=== PATIENT | male | born 1960 | race Caucasian/White ===

== ENCOUNTER 2020-05-08 16:06 | Observation (INO) | payer BC, SELFPAY ==
--- NOTE | 2020-05-08 | XR_ITS ---
EXAMINATION: XR CHEST CLINICAL INFORMATION: Dizziness COMPARISON: None TECHNIQUE: Frontal view of the chest was obtained. FINDINGS: The cardiac and mediastinal contours are normal. The lungs are clear. There is no pleural effusion or pneumothorax. There are surgical anchors in the right humeral head and degenerative changes. There are degenerative changes of the spine. IMPRESSION: No evidence for acute disease in the chest.
--- NOTE | 2020-05-08 | ECG_ITS ---
Test Reason : DIZZINESS Blood Pressure : / mmHG Vent. Rate : 111 BPM Atrial Rate : 133 BPM P-R Int : 000 ms QRS Dur : 090 ms QT Int : 306 ms P-R-T Axes : 000 021 060 degrees QTc Int : 416 ms Atrial fibrillation with rapid ventricular response with premature ventricular or aberrantly conducted complexes Abnormal ECG No previous ECGs available Referred By: Yousif Castano Electronically Signed By:CELI DEVINE
--- NOTE | 2020-05-08 | CT_ITS ---
EXAMINATION: CT ANGIOGRAM OF THE CHEST WITH AND WITHOUT CONTRAST (CT PULMONARY ANGIOGRAM FOR PE) CLINICAL INFORMATION: Reason for Exam dizziness, tachy, elevated ddimer COMPARISON: None TECHNIQUE: Prior to contrast administration, noncontrast localization images were obtained. Subsequently, multidetector volumetric imaging was performed from the thoracic inlet to below the diaphragms following the administration of 71 mL Omnipaque 350 intravenous contrast. No contrast reaction reported Sagittal, coronal, and MIP oblique sagittal reformatted images were obtained on the CT workstation, uploaded to PACS, and reviewed. This CT examination was performed using dose optimization techniques as appropriate, variously including the following: *Automated exposure control *Adjustment of mA and/or kV according to patient size (this includes techniques or standardized protocols for targeted exams where dose is matched to indication/reason for exam; i.e. extremities or head) *Use of iterative reconstruction technique Total exam dose-length product 380 mGy-cm FINDINGS: QUALITY OF STUDY/CONTRAST BOLUS: Satisfactory. PULMONARY ARTERIES: No central or segmental pulmonary emboli. THORACIC AORTA: No aneurysm or dissection. LUNG: No focal consolidation, nodules or masses. PLEURA: No pleural effusion or pneumothorax. MEDIASTINUM: Normal heart size. No pericardial effusion. No hilar or mediastinal lymphadenopathy. No evidence of septal bowing or right heart strain. CHEST WALL/AXILLA: No axillary or internal mammary lymphadenopathy. OSSEOUS STRUCTURES: No acute or suspicious osseous abnormality. UPPER ABDOMEN: Unremarkable. No reflux of contrast into the hepatic veins to suggest elevated right heart pressures. IMPRESSION: No evidence of pulmonary emboli VTE: negative
--- NOTE | 2020-05-08 | CT_ITS ---
EXAMINATION: CT HEAD WITHOUT CONTRAST CLINICAL INFORMATION: Dizziness. COMPARISON: CT head from 10/24/2012. TECHNIQUE: Contiguous axial imaging was performed from the skull base to vertex without intravenous administration of contrast. DLP: 874 mGy-cm This CT examination was performed using dose optimization techniques as appropriate, variously including the following: *Automated exposure control. *Adjustment of mA and/or kV according to patient size (this includes techniques or standardized protocols for targeted exams where dose is matched to indication/reason for exam; i.e. extremities or head). *Use of iterative reconstruction technique. FINDINGS: Changes of stent assisted coil embolization in the region of the distal right ICA. There is no evidence of acute intracranial hemorrhage or edematous territorial infarction. A few foci of hypoattenuation in the periventricular and deep white matter are consistent with mild microangiopathy. Chronic lacunar infarct of the right caudate head. No new loss of bell-white matter differentiation. The ventricles are normal in size and configuration. No evidence for obstructive hydrocephalus. No abnormal mass effect or midline shift. No extra-axial fluid collections. No acute soft tissue or osseous abnormalities. Mild mucosal thickening of the paranasal sinuses. The mastoid air cells and middle ear cavities remain clear. IMPRESSION: 1. No evidence of acute intracranial hemorrhage or edematous territorial infarction. 2. Changes of stent assisted coil embolization in the region of the distal right ICA. 3. Chronic lacunar infarct of the right caudate head. Mild underlying microangiopathy.
[2020-05-08 16:31] VITALS: BP 135/78; BP 147/86; PULSE 117; RESP 20; TEMP 36.8; O2SAT 97; BMI 33.9
[2020-05-08] MEDS: 0.9 % Sodium Chloride 1,000 ML 999 ML IVCONT (17:07)
[2020-05-08 17:10] VITALS: BP 124/74; PULSE 125
[2020-05-08] MEDS: Metoprolol Tartrate 5 MG/5 ML VIAL 2.5 MG IVPUSH (17:10)
--- NOTE | 2020-05-08 17:18 | ED.DIZZY ---
HPI - Dizziness General Chief Complaint: Dizziness Stated Complaint: syncopee Time Seen by Provider: 05/08/20 16:34 Source: patient Mode of arrival: EMS History of Present Illness HPI Narrative: 59-year-old male stating that earlier today he was at home sitting down and started to feel his heart race. At that point he started get diaphoretic and felt like he passed out. However his did witness same he did not fully pass out. Patient states his heart was pounding out of his chest lasted several minutes. Upon arrival to the EMS they noted tachycardia however no medications were given patient was in a fib patient has not been sick recently however did state that he had a cardiac catheterization about 2 months ago at [facility] that was normal. No recent illness no nausea no vomiting MD elicited complaint: dizziness and lightheadedness Related Data Home Medications Medication Instructions Recorded Confirmed alprazolam 1 tab PO TID PRN 05/08/20 05/08/20 atorvastatin 1 tab PO DAILY 05/08/20 05/08/20 dofetilide [Tikosyn] 500 mcg PO Q12H 05/08/20 05/08/20 doxycycline hyclate 1 cap PO BID 05/08/20 05/08/20 lidocaine TOPICAL TID 05/08/20 oxycodone-acetaminophen 1 tab PO Q6H 05/08/20 05/08/20 terazosin 1 cap PO BEDTIME 05/08/20 05/08/20 Allergies Allergy/AdvReac Type Severity Reaction Status Date / Time No Known Allergies Allergy Verified 05/08/20 16:43 Review of Systems Review of Systems: Yes all other systems are reviewed and are negative Constitutional: Comments: Constitutional : No Weight loss, No Fever, No Chills, No Night Sweats, No Fatigue, No Malaise ENT/Mouth : No Hearing loss, No Ear Pain, No Nasal Congestion, No Sinus Pain, No Hoarseness, No sore throat, No Rhinorrhea, No Swallowing Difficulty Eyes: No Eye Pain, No Swelling, No Redness, No Foreign Body, No Discharge, No Vision Changes Cardiovascular : positive Chest Pain, No SOB, No Dyspnea on Exertion, No Orthopnea, No Edema, No Palpitations Respiratory : No Cough, No Sputum, No Wheezing, No Smoke Exposure, No Dyspnea Gastrointestinal : No Nausea, No Vomiting, No Diarrhea, No Constipation, No abdominal Pain, No Hematochezia, No Melena Genitourinary : no irregular bleeding, No Dysuria, No Urinary Frequency, No Hematuria, No Urinary Incontinence, No Urgency, No Flank Pain, No Urinary Flow Changes, No Hesitancy Musculoskeletal : No joint pain, No Myalgias, No Joint Swelling Skin : No Skin Lesions, No rash Neuro : No Weakness, No Numbness, No Paresthesias, No Loss of Consciousness, No Dizziness, No Headache Psych : No Anxiety/Panic, No Depression, No SI/HI/AH/VH, No Social Issues, Heme/Lymph: No Bruising, No Bleeding,No Lymphadenopathy Endocrine : No Polyuria, No Polydipsia, No Temperature Intolerance [facility] Past Medical History Attestation statement: The following information was validated with the patient. Medical History A-fib Brain aneurysm Prostate CA Surgical History Hx of cardiac cath S/P ablation of atrial flutter Social History Social History Alcohol intake: former Smoking Status: Light tobacco smoker Tobacco Type: Cigarette Smoked in Last 30 Days: Yes Patient Interested in Nicotine Replacement: No Patient Given Instructions on How to Stop Smoking: No Second Hand Smoke Exposure: No Use of substances other than those prescribed or required for medical reasons: No Advance Directives: No Advance Directives Information Provided: No Advance Directives on File: No Physical Exam Vital Signs and I&O and Narrative: Vital Signs and I&O: Vital Signs Temp 96.7 F L 05/09/20 00:00 Pulse 64 05/09/20 00:00 Resp 18 05/09/20 00:00 BP 144/87 H 05/09/20 00:00 Pulse Ox 97 05/09/20 00:00 Intake & Output 05/08/20 05/08/20 05/09/20 06:59 18:59 06:59 Intake Total 1000 / 1000 Balance 1000 / 1000 Weight 113.398 kg Intake: Intake, IV Amoun t 1000 / 1000 0.9 % Sodium C hloride 1,000 ml 1000 / 1000 @ 999 mls/hr I VCONT .Q1H1M ALISHA Rx#:[id number] Body Mass Index 33.9 vital signs reviewed 97% pulse ox room air and interpreted by me Const: Other: Appearance: Alert. Oriented X3. No acute distress. Eyes: Pupils equal, round and reactive to light. ENT: Pharynx normal. Neck: Normal inspection. Neck supple. CVS: abnormal rhythm. Positive S1-S2 Pulses normal. Respiratory: No respiratory distress. Breath sounds normal. Abdomen: Soft and nontender. Skin: Skin warm and dry. Normal skin color. Normal skin turgor. Extremities: No lower extremity edema. No lower extremity edema. Neuro: Oriented X 3. No motor deficit. No sensory deficit. General: cooperative Course Course Course Narrative: differential diagnosis includes pulmonary embolism secondary to history of prostate cancer. History of a brain aneurysm will get a CT scan of the brain secondary to rule out bleed. Patient slightly tachycardic in 120s however is on a beta-lazaro will give a small dose of IV Lopressor re-examined and now 21:30. Patient has a negative CTA for PE. Normal labs. Slight tachycardiac at AFib of 110 on the monitor. Patient did have an episode of syncope today with palpitations. Patient does have a strong history of ablation and on some anti arrhythmic. Patient will need to be admitted for continuous monitoring patient aware at 22:00 I spoke to hospitalist Dr. Tor baer regarding admission laboratory and radiology results reviewed by me MDM - Dizziness Differential Diagnosis Differential diagnosis: Likely benign paroxysmal positional vertigo and orthostatic hypotension Medical Records Attestation: I reviewed the patient's medical records. Lab Data Result diagrams: 05/08/20 17:32 05/08/20 17:32 Labs: Lab Results 05/08/20 05/08/20 05/08/20 Range/Units 17:32 17:32 17:32 WBC 7.5 (4.8-10.8) X10*3/uL RBC 4.84 (4.60-5.80) X10*6/uL Hgb 15.6 (14.0-18.0) g/dl Hct 46.2 (42-52) % MCV 95.5 (80-98) fL MCH 32.2 (27.0-33.0) pg MCHC 33.8 (31.0-36.0) g/dl RDW 13.1 (11.0-16.0) % Plt Count 162 (160-400) X10*3/uL MPV 9.4 (9.4-12.4) fL Immature Gran % (Auto) 0.3 (0.0-0.4) % Neut % (Auto) 64.8 (45-73) % Lymph % (Auto) 23.8 (20-40) % Jackson % (Auto) 8.7 (2-11) % Eos % (Auto) 2.1 (0-4) % Baso % (Auto) 0.3 (0-2) % Neut # (Auto) 4.9 (2.0-8.3) X10*3/uL Lymph # (Auto) 1.8 (1.2-4.9) X10*3/uL Jackson # (Auto) 0.7 (0.1-1.2) X10*3/uL Eos # (Auto) 0.2 (0.0-0.4) X10*3/uL Baso # (Auto) 0.0 (0.0-0.2) X10*3/uL Abs Immat Gran (auto) 0.02 (0.00-0.03) X10*3/uL Absolute Nucleated RBC 0.000 (0.0-0.012) X10*3/uL Nucleated RBC % (auto) 0.0 (0.0-0.2) /100WBC PT 13.3 H (10.8-13.0) SEC INR 1.1 (0.9-1.1) APTT 36.2 (24.1-38.0) SEC D-Dimer NG/ML Sodium 142 (135-145) mmol/L Potassium 4.7 (3.3-5.1) mmol/l Chloride 108 (96-108) mmol/L Carbon Dioxide 26 (22-29) mmol/L Anion Gap 13 (12-20) BUN 23 H (9-16) mg/dL Creatinine 0.82 (0.5-1.4) mg/dL Estim Creat Clear Calc 122.9 Estimated GFR > 60 Random Glucose 98 (60-115) mg/dL Calcium 8.6 (8.4-10.2) mg/dL Troponin I High Sens (<3.5-35.0) ng/L 05/08/20 05/08/20 Range/Units 17:32 17:32 WBC (4.8-10.8) X10*3/uL RBC (4.60-5.80) X10*6/uL Hgb (14.0-18.0) g/dl Hct (42-52) % MCV (80-98) fL MCH (27.0-33.0) pg MCHC (31.0-36.0) g/dl RDW (11.0-16.0) % Plt Count (160-400) X10*3/uL MPV (9.4-12.4) fL Immature Gran % (Auto) (0.0-0.4) % Neut % (Auto) (45-73) % Lymph % (Auto) (20-40) % Jackson % (Auto) (2-11) % Eos % (Auto) (0-4) % Baso % (Auto) (0-2) % Neut # (Auto) (2.0-8.3) X10*3/uL Lymph # (Auto) (1.2-4.9) X10*3/uL Jackson # (Auto) (0.1-1.2) X10*3/uL Eos # (Auto) (0.0-0.4) X10*3/uL Baso # (Auto) (0.0-0.2) X10*3/uL Abs Immat Gran (auto) (0.00-0.03) X10*3/uL Absolute Nucleated RBC (0.0-0.012) X10*3/uL Nucleated RBC % (auto) (0.0-0.2) /100WBC PT (10.8-13.0) SEC INR (0.9-1.1) APTT (24.1-38.0) SEC D-Dimer 266 NG/ML Sodium (135-145) mmol/L Potassium (3.3-5.1) mmol/l Chloride (96-108) mmol/L Carbon Dioxide (22-29) mmol/L Anion Gap (12-20) BUN (9-16) mg/dL Creatinine (0.5-1.4) mg/dL Estim Creat Clear Calc Estimated GFR Random Glucose (60-115) mg/dL Calcium (8.4-10.2) mg/dL Troponin I High Sens 14.7 (<3.5-35.0) ng/L ECG Data Attestation: I personally reviewed and interpreted this ECG as follows: Interpretation: atrial fib at rate of 111. Normal axis. Occasional PVC. Normal ST segments Discharge Plan Discharge Clinical Impression: Syncope, Heart palpitations, Atrial fibrillation Patient Disposition: Admitted As Inpatient Interventions: Admission Worksheet (ED) Last Done: 05/09/20 00:28 Discharge Date/Time: 05/09/20 00:30
[2020-05-08 17:54] LABS: MANUAL DIFF FLAG NO
[2020-05-08 17:56] LABS: Basophils Percent Auto 0.3 % (0-2); Eosinophils Absolute Auto 0.2 X10*3/uL (0.0-0.4); Eosinophils Percent Auto 2.1 % (0-4); Hematocrit 46.2 % (42-52); Hemoglobin 15.6 g/dl (14.0-18.0); Imm Gran Abs Auto 0.02 X10*3/uL (0.00-0.03); Imm Gran Pct Auto 0.3 % (0.0-0.4); Lymphocytes Absolute Auto 1.8 X10*3/uL (1.2-4.9); Lymphocytes Percent Auto 23.8 % (20-40); Mean Corpuscular HGB Conc 33.8 g/dl (31.0-36.0); Mean Corpuscular Hemoglobin 32.2 pg (27.0-33.0); Mean Corpuscular Volume 95.5 fL (80-98); Mean Platelet Volume 9.4 fL (9.4-12.4); Monocytes Absolute Auto 0.7 X10*3/uL (0.1-1.2); Monocytes Percent Auto 8.7 % (2-11); Neutrophils Absolute Auto 4.9 X10*3/uL (2.0-8.3); Neutrophils Percent Auto 64.8 % (45-73); Platelet Count 162 X10*3/uL (160-400); Red Blood Count 4.84 X10*6/uL (4.60-5.80); Red Cell Distribution Width 13.1 % (11.0-16.0); White Blood Count 7.5 X10*3/uL (4.8-10.8)
[2020-05-08 18:05] LABS: INTERNATIONAL NORM RATIO 1.1 (0.9-1.1); Prothrombin Time 13.3 SEC (10.8-13.0)
[2020-05-08 18:08] LABS: D Dimer 266 NG/ML; Partial Thromboplastin Time 36.2 SEC (24.1-38.0)
[2020-05-08 18:20] VITALS: BP 124/88; PULSE 108; PULSE 120; RESP 18; O2SAT 97
[2020-05-08 18:21] LABS: Anion Gap 13 (12-20); Blood Urea Nitrogen 23 mg/dL (9-16); Calcium 8.6 mg/dL (8.4-10.2); Carbon Dioxide 26 mmol/L (22-29); Chloride 108 mmol/L (96-108); Creatinine Clr Calc Pharmacy 122.9; Estimated Glomerular Filt Rate > 60; Glucose Random 98 mg/dL (60-115); Potassium 4.7 mmol/l (3.3-5.1); Sodium 142 mmol/L (135-145)
[2020-05-08 18:28] LABS: Troponin-I High Sensitivity 14.7 ng/L (<3.5-35.0)
[2020-05-08 19:01] VITALS: BP 121/71; PULSE 99; RESP 16; O2SAT 97
--- NOTE | 2020-05-08 19:02 | PC.NURSE ---
Report taken from tata Benitez RN resuming care. Pt found resting in bed, denies dizziness/pain/discomfort at this time. Pt concerned for PM Doxycycline dose for UTI/prostate infection. Pt trying to contact for dose. VSS. Continue to monitor.
--- NOTE | 2020-05-08 19:32 | PC.NURSE ---
Pharm called for pending medications. Awaiting pharm to bring medications to ED.
--- NOTE | 2020-05-08 19:48 | PC.NURSE ---
Pt medicated per EMAR. Awaiting CT.
[2020-05-08] MEDS: iohexoL 350 MG/ML 100 ML INFUS..BTL IV (20:38)
--- NOTE | 2020-05-08 20:39 | PC.NURSE ---
Returns from CT on hospital bed without incident.
--- NOTE | 2020-05-08 22:49 | PC.NURSE ---
Hospitalist at bedside.
--- NOTE | 2020-05-08 22:49 | PM.IMHP ---
History of Present Illness Date of Service: 05/08/20 Chief Complaint: syncope 59 y/o male with a significant cardiac hx of afib s/p ablation in the past and PCI 1 month ago who presented from home due to an episode of loss of conciusness . Per history provided by the patient, today while walking with the son, felt his heart was racing and then suddenly felt malaise and loss conciusness for a few minutes. Patient recovered conciusness right after without any sequelae or neurologic deficit. Patient on presentation to the ED was noted to be on afib with RVR (HR of 120's). Was given metoprolol and tikosyn per ED attending. Now HR is under controlled <110's. Patient reports feeling well, denies any chest pain, SOB, nausea or vomiting at present. Reported that 1 month ago had a cardiac cath as was having SOB on ambulation for quite some time but no coronary artery disease was found during the procedure. Medicine was called for admission. Patient was seen and evaluated in the ED, laying down in bed in no acute distress. ROS as above otherwise negative. Physical exam unremarkable. PMHX: Afib on rate control med but no anticoagulation, Anxiety, Urinary retention, HLP PSx: S/p PCI one month ago, S/p ablation Toxic habits: No hx of alcohol abuse, smoking or IVDA Review of Systems Constitutional: Constitutional: Reports malaise Cardiovascular: Cardiovascular: Reports syncope Neurologic: Reports syncope ON LICENSE OF [facility] Medical History A-fib Brain aneurysm Prostate CA Functional capacity: independent ambulation Family history: reviewed and not pertinent Surgical History Hx of cardiac cath S/P ablation of atrial flutter Social History Alcohol intake: former Smoking Status: Light tobacco smoker Smoked in Last 30 Days: Yes Use of substances other than those prescribed or required for medical reasons: No Advance Directives: No Advance Directives Information Provided: No Meds Allergies Allergy/AdvReac Type Severity Reaction Status Date / Time No Known Allergies Allergy Verified 05/08/20 16:43 Home Medications Medication Instructions Recorded Confirmed Type alprazolam 1 tab PO TID PRN 05/08/20 05/08/20 History atorvastatin 1 tab PO DAILY 05/08/20 05/08/20 History dofetilide [Tikosyn] 500 mcg PO Q12H 05/08/20 05/08/20 History doxycycline hyclate 1 cap PO BID 05/08/20 05/08/20 History lidocaine TOPICAL TID 05/08/20 History oxycodone-acetaminophen 1 tab PO Q6H 05/08/20 05/08/20 History terazosin 1 cap PO BEDTIME 05/08/20 05/08/20 History Physical Exam Vital Signs and Narrative: Vital Signs: Last Vital Signs Temp 98.2 F 05/08/20 16:31 Pulse 99 05/08/20 19:01 Resp 16 05/08/20 19:01 BP 121/71 05/08/20 19:01 Pulse Ox 97 05/08/20 19:01 Body Mass Index 33.9 Const: General: cooperative, healthy appearing, comfortable and no acute distress Orientation/consciousness: patient oriented x3 HENMT: Head: Yes normal to inspection Eyes: General: appearance normal, both eyes and all related structures Neck: Yes normal visual inspection and Yes no lymphadenopathy Chest: Chest palpation & inspection: normal inspection of the chest Resp: Effort & Inspection: normal respiratory effort Cardio: Jugular venous distension: no JVD Heart sounds: S1 normal heart sound present and S2 normal heart sound present GI: Inspection: Yes normal to inspection Skin: General skin exam: no rashes or lesions noted Neuro: General: patient oriented x3 Extrem: General: Yes normal to inspection Psych: Appearance: grossly normal Results Labs Labs: Laboratory Tests 05/08/20 05/08/20 05/08/20 17:32 17:32 17:32 WBC 7.5 RBC 4.84 Hgb 15.6 Hct 46.2 MCV 95.5 MCH 32.2 MCHC 33.8 RDW 13.1 Plt Count 162 MPV 9.4 Immature Gran % (Auto) 0.3 Neut % (Auto) 64.8 Lymph % (Auto) 23.8 Hartley % (Auto) 8.7 Eos % (Auto) 2.1 Baso % (Auto) 0.3 Neut # (Auto) 4.9 Lymph # (Auto) 1.8 Hartley # (Auto) 0.7 Eos # (Auto) 0.2 Baso # (Auto) 0.0 Abs Immat Gran (auto) 0.02 Absolute Nucleated RBC 0.000 Nucleated RBC % (auto) 0.0 PT 13.3 H INR 1.1 APTT 36.2 D-Dimer Sodium 142 Potassium 4.7 Chloride 108 Carbon Dioxide 26 Anion Gap 13 BUN 23 H Creatinine 0.82 Estim Creat Clear Calc 122.9 Estimated GFR > 60 Random Glucose 98 Calcium 8.6 Troponin I High Sens 05/08/20 05/08/20 17:32 17:32 WBC RBC Hgb Hct MCV MCH MCHC RDW Plt Count MPV Immature Gran % (Auto) Neut % (Auto) Lymph % (Auto) Hartley % (Auto) Eos % (Auto) Baso % (Auto) Neut # (Auto) Lymph # (Auto) Hartley # (Auto) Eos # (Auto) Baso # (Auto) Abs Immat Gran (auto) Absolute Nucleated RBC Nucleated RBC % (auto) PT INR APTT D-Dimer 266 Sodium Potassium Chloride Carbon Dioxide Anion Gap BUN Creatinine Estim Creat Clear Calc Estimated GFR Random Glucose Calcium Troponin I High Sens 14.7 Assessment and Plan (1) Atrial fibrillation with RVR: Status: Acute Hemodynamically stable at present. HR controlled now No neurologic deficits on exam monitor and storage bin tender for 24-48 hrs Continue with rate control med as ordered Follow up 2D Echo in the am Cardiology consult for evaluation in the morning Observation as of now (2) Syncope: Status: Acute Likely due to cardiac etiology Observation monitor and storage bin tender in C Rest of the plan as above (3) Anxiety: Status: Acute continue with alprazolam home dose (4) Hyperlipidemia: Status: Acute continue with statin home dose (5) Urinary retention: Status: Acute continue with terazosin home dose
[2020-05-08 22:51] VITALS: BP 138/72; PULSE 73; RESP 16; TEMP 36.7; O2SAT 97
--- NOTE | 2020-05-08 23:07 | PC.NURSE ---
Med Rec completed at bedside with pt. Pt aware of plan to admit, requesting food/drink.
--- NOTE | 2020-05-08 23:37 | PC.NURSE ---
Pt given a sandwich and a glass of water per request. Pt sitting upright in bed, watching TV, awaiting admission. Continue to monitor.
--- NOTE | 2020-05-08 23:42 | PC.NURSE ---
This RN calling IMC, IMC to call back when ready to take report.
--- NOTE | 2020-05-08 23:43 | PC.NURSE ---
Report given to C RN. Pt awaiting transfer to floor.
[2020-05-09] VITALS (8 sets, daily range): BP systolic 100–147; BP diastolic 58–87; PULSE 56–71; RESP 18; TEMP 35.9–36.9; O2SAT 96–99; BMI 33.8
--- NOTE | 2020-05-09 | ECG_ITS ---
Test Reason : CHECK QTC Blood Pressure : / mmHG Vent. Rate : 075 BPM Atrial Rate : 075 BPM P-R Int : 208 ms QRS Dur : 092 ms QT Int : 416 ms P-R-T Axes : 062 021 041 degrees QTc Int : 464 ms Sinus rhythm with frequent Premature ventricular complexes Otherwise normal ECG When compared with ECG of 08-MAY-2020 16:33, Sinus rhythm has replaced Atrial fibrillation Referred By: Yousif Castano Electronically Signed By:CELI DEVINE
[2020-05-09] MEDS: Enoxaparin Sodium 40 MG/0.4 ML SYRINGE SUBCUT ×2 (00:44→21:09)
[2020-05-09] MEDS: 0.9 % Sodium Chloride 1,000 ML 100 ML IVCONT ×3 (00:45→19:07)
[2020-05-09] MEDS: Ibuprofen 600 MG TABLET PO (01:21)
[2020-05-09 06:34] LABS: MANUAL DIFF FLAG NO
--- NOTE | 2020-05-09 06:44 | PC.NURSE ---
PATIENT HAD A RUN OF 5 BEAT VTACH. PATIENT ASSESSED AND HAS NO COMPLAINTS AT THIS TIME. PROVIDER MADE AWARE. WILL CONTINUE TO MONITOR.
[2020-05-09 06:54] LABS: Basophils Percent Auto 0.4 % (0-2); Eosinophils Absolute Auto 0.2 X10*3/uL (0.0-0.4); Eosinophils Percent Auto 2.7 % (0-4); Hematocrit 45.4 % (42-52); Hemoglobin 15.3 g/dl (14.0-18.0); Imm Gran Abs Auto 0.01 X10*3/uL (0.00-0.03); Imm Gran Pct Auto 0.1 % (0.0-0.4); Lymphocytes Percent Auto 28.3 % (20-40); Mean Corpuscular HGB Conc 33.7 g/dl (31.0-36.0); Mean Corpuscular Hemoglobin 32.2 pg (27.0-33.0); Mean Corpuscular Volume 95.6 fL (80-98); Mean Platelet Volume 9.8 fL (9.4-12.4); Monocytes Absolute Auto 0.6 X10*3/uL (0.1-1.2); Neutrophils Absolute Auto 4.2 X10*3/uL (2.0-8.3); Neutrophils Percent Auto 60.5 % (45-73); Platelet Count 171 X10*3/uL (160-400); Red Blood Count 4.75 X10*6/uL (4.60-5.80); Red Cell Distribution Width 13.2 % (11.0-16.0)
[2020-05-09 08:18] LABS: Anion Gap 12 (12-20); Blood Urea Nitrogen 19 mg/dL (9-16); Calcium 8.2 mg/dL (8.4-10.2); Carbon Dioxide 24 mmol/L (22-29); Chloride 109 mmol/L (96-108); Creatinine Clr Calc Pharmacy 136.1; Estimated Glomerular Filt Rate > 60; Glucose Random 105 mg/dL (60-115); Potassium 4.4 mmol/l (3.3-5.1); Sodium 141 mmol/L (135-145)
--- NOTE | 2020-05-09 10:28 | PM.CNCAR ---
History of Present Illness History of Present Illness Date of Consult: May 09, 2020 Requesting physician: Turner Baer Consult reason: atrial fibrillation Chief complaint: syncope Narrative: This is a cardiology consultation for syncopal episode. Patient states that he was standing near his son when all of a sudden he just did not feel good. He suddenly felt as though he was going to pass out. It appears that that may have been a transient loss of consciousness although he did not fall down. When he presented to the ER, he was noted to be in atrial fibrillation rapid rate in the 120s. He was given some metoprolol and Tikosyn per ER physician. Patient has actually been on Tikosyn for many years. He has a history of long-standing atrial fibrillation. It appears that he is mostly in sinus rhythm. He also has a history of atrial flutter and underwent ablation for the same many years ago. About 2 weeks ago, he was started on terazosin for prostate issues. Since that time, he has not been feeling good. Otherwise, it seems that he also underwent cardiac catheterization few weeks ago at [facility]. He was told that he did not have any major problems although we do not have the actual report. Review of Systems Review of Systems: Yes all other systems are reviewed and are negative Cardiovascular: Cardiovascular: Reports syncope Neurologic: Reports syncope PMFSH Past Medical History Medical History A-fib Brain aneurysm Prostate CA Functional capacity: independent ambulation Family History Family History (Updated 05/09/20 @ 10:35 by Parmjit Cha MD) Other No significant family history Family history: reviewed and not pertinent Surgical History Surgical History Hx of cardiac cath S/P ablation of atrial flutter Social History Social History Alcohol intake: former Smoking Status: Light tobacco smoker Tobacco Type: Cigarette Smoked in Last 30 Days: Yes Patient Interested in Nicotine Replacement: No Patient Given Instructions on How to Stop Smoking: No Second Hand Smoke Exposure: No Use of substances other than those prescribed or required for medical reasons: No Advance Directives: No Advance Directives Information Provided: No Advance Directives on File: No Meds Allergies Allergy/AdvReac Type Severity Reaction Status Date / Time No Known Allergies Allergy Verified 05/08/20 16:43 Home Medications Medication Instructions Recorded Confirmed Type alprazolam 1 tab PO TID PRN 05/08/20 05/08/20 History atorvastatin 1 tab PO DAILY 05/08/20 05/08/20 History dofetilide [Tikosyn] 500 mcg PO Q12H 05/08/20 05/08/20 History doxycycline hyclate 1 cap PO BID 05/08/20 05/08/20 History lidocaine TOPICAL TID 05/08/20 History oxycodone-acetaminophen 1 tab PO Q6H 05/08/20 05/08/20 History terazosin 1 cap PO BEDTIME 05/08/20 05/08/20 History aspirin 81 mg PO DAILY 05/09/20 05/09/20 History metoprolol succinate 25 mg PO DAILY 05/09/20 05/09/20 History Physical Exam Vital Signs and I&O and Narrative: Vital Signs and I&O: Vital Signs Temp 97.3 F 05/09/20 08:00 Pulse 71 05/09/20 08:00 Resp 18 05/09/20 08:00 BP 115/58 L 05/09/20 08:00 Pulse Ox 98 05/09/20 08:00 Intake & Output 05/08/20 05/09/20 05/09/20 18:59 06:59 18:59 Intake Total 1000 / 1240 240 / 1240 930 / 930 Output Total 0 / 0 Balance 1000 / 1240 240 / 1240 930 / 930 Urine Output (Aver age ml/kg/hr) 0.00 0.00 Weight 250 lb 249 lb 8.307 oz Intake: Intake, Oral Clear unt 240 / 240 Intake, IV Amoun t 1000 / 1000 930 / 930 0.9 % Sodium C hloride 1,000 ml 1000 / 1000 930 / 930 @ 100 mls/hr I VCONT .Q10H [facility] Rx#:[id number] Output: Output, Urine Am ount 0 / 0 Other: Meal Refused No Breakfast % Eate n 100% Body Mass Index 33.8 Const: General: cooperative, comfortable and no acute distress Orientation/consciousness: patient oriented x3 HENMT: Other: Unremarkable Neck: Neck: Yes normal visual inspection Chest: Chest palpation & inspection: normal inspection of the chest Resp: Auscultation: clear to auscultation bilaterally, no crackles and no wheezes Cardio: Jugular venous distension: no JVD Palpation: normal PMI Heart sounds: S1 normal heart sound present, S2 normal heart sound present, no gallops, Murmur heart sound present (2/6 RAMANDEEP aortic area) and no rubs GI: Palpation (GI): Soft to palpation Back/Spine/Pelvis: Other: unremarkable Skin: General skin exam: no rashes or lesions noted Neuro: General: patient oriented x3 Extrem: General: Yes no clubbing, cyanosis or edema Psych: Mental Status: mental status grossly normal Results Labs and Meds Result diagrams: 05/09/20 05:43 05/09/20 05:43 Lab results: Laboratory Results - last 24 hr 05/08/20 05/08/20 05/08/20 17:32 17:32 17:32 WBC 7.5 RBC 4.84 Hgb 15.6 Hct 46.2 MCV 95.5 MCH 32.2 MCHC 33.8 RDW 13.1 Plt Count 162 MPV 9.4 Immature Gran % (Auto) 0.3 Neut % (Auto) 64.8 Lymph % (Auto) 23.8 Falls % (Auto) 8.7 Eos % (Auto) 2.1 Baso % (Auto) 0.3 Neut # (Auto) 4.9 Lymph # (Auto) 1.8 Falls # (Auto) 0.7 Eos # (Auto) 0.2 Baso # (Auto) 0.0 Abs Immat Gran (auto) 0.02 Absolute Nucleated RBC 0.000 Nucleated RBC % (auto) 0.0 PT 13.3 H INR 1.1 APTT 36.2 D-Dimer Sodium 142 Potassium 4.7 Chloride 108 Carbon Dioxide 26 Anion Gap 13 BUN 23 H Creatinine 0.82 Estim Creat Clear Calc 122.9 Estimated GFR > 60 Random Glucose 98 Calcium 8.6 Troponin I High Sens 05/08/20 05/08/20 05/09/20 17:32 17:32 05:43 WBC 7.0 RBC 4.75 Hgb 15.3 Hct 45.4 MCV 95.6 MCH 32.2 MCHC 33.7 RDW 13.2 Plt Count 171 MPV 9.8 Immature Gran % (Auto) 0.1 Neut % (Auto) 60.5 Lymph % (Auto) 28.3 [place] % (Auto) 8.0 Eos % (Auto) 2.7 Baso % (Auto) 0.4 Neut # (Auto) 4.2 Lymph # (Auto) 2.0 Falls # (Auto) 0.6 Eos # (Auto) 0.2 Baso # (Auto) 0.0 Abs Immat Gran (auto) 0.01 Absolute Nucleated RBC 0.000 Nucleated RBC % (auto) 0.0 PT INR APTT D-Dimer 266 Sodium Potassium Chloride Carbon Dioxide Anion Gap BUN Creatinine Estim Creat Clear Calc Estimated GFR Random Glucose Calcium Troponin I High Sens 14.7 05/09/20 05:43 WBC RBC Hgb Hct MCV MCH MCHC RDW Plt Count MPV Immature Gran % (Auto) Neut % (Auto) Lymph % (Auto) [place] % (Auto) Eos % (Auto) Baso % (Auto) Neut # (Auto) Lymph # (Auto) [place] # (Auto) Eos # (Auto) Baso # (Auto) Abs Immat Gran (auto) Absolute Nucleated RBC Nucleated RBC % (auto) PT INR APTT D-Dimer Sodium 141 Potassium 4.4 Chloride 109 H Carbon Dioxide 24 Anion Gap 12 BUN 19 H Creatinine 0.74 Estim Creat Clear Calc 136.1 Estimated GFR > 60 Random Glucose 105 Calcium 8.2 L Troponin I High Sens EKG Interpretation Telemetry: PVC's EKG Comments: admission EKG reviewed. Atrial fibrillation with rapid response at 01:11/Min. PVCs versus aberrant conduction noted. Telemetry with PVCs and a 5 beat run of NSVT. Assessment and Plan (1) Atrial fibrillation with RVR: Status: Acute (2) Syncope: Status: Acute (3) PVC (premature ventricular contraction): Status: Acute Not entirely clear if the syncopal episode is due to the terazosin that he started 2 weeks ago as he has not been feeling well ever since. Atrial fibrillation is also possible but less likely. At this time he can continue the beta-blockers and Tikosyn that he has been taking for many years. Will try to reach out to his printmaker from [facility]. With regard to the murmur in the aortic area, there is a mention of calcification of aortic leaflets from [facility] echocardiogram from 2019 but there was no stenosis at that time.
[2020-05-09] MEDS: HYDROcodone Bit/Acetam 5/325 TABLET 1 TAB PO ×2 (11:10→18:18)
[2020-05-09] MEDS: Metoprolol Succinate ER 25 MG TAB.ER.24H PO (11:11)
[2020-05-09] MEDS: Aspirin Enteric Coated 81 MG TABLET.DR PO (11:12)
--- NOTE | 2020-05-09 12:31 | MHC.CM.PN ---
CM met with patient at the bedside who reports he is independent and lives with his . States his is HCP, requested copy. Discussed discharge plan, home no services. will provide transportation. CM will continue to monitor foe discharge needs.
[2020-05-09] MEDS: ALPRAZolam 0.5 MG TABLET PO (17:25)
--- NOTE | 2020-05-09 18:01 | PM.IMPN ---
Subjective Subjective Date of Service: 05/09/20 Interval History: seen and examined this am was anxious related to his cardiac meds -- reassured he would get the appropriate meds no further cardiac / neuro complaints otherwirse Review of Systems General - no fevers or chills Cardiovascular - no chest pain Respiratory - no shortness of breath or cough Abdominal- no abdominal pain, nausea, vomiting, diarrhea Physical Exam Vital Signs and I&O and Narrative: Vital Signs and I&O: Vital Signs Temp 98.4 F 05/09/20 15:26 Pulse 62 05/09/20 15:26 Resp 18 05/09/20 15:26 BP 147/84 H 05/09/20 15:26 Pulse Ox 98 05/09/20 15:26 Intake & Output 05/08/20 05/09/20 05/09/20 18:59 06:59 18:59 Intake Total 1000 / 1240 240 / 1240 1150 / 1150 Output Total 0 / 0 600 / 600 Balance 1000 / 1240 240 / 1240 550 / 550 Urine Output (Aver age ml/kg/hr) 0.00 0.44 Weight 113.398 kg 113.18 kg Intake: Intake, Oral [place] unt 240 / 240 220 / 220 Intake, IV Amoun t 1000 / 1000 930 / 930 0.9 % Sodium C hloride 1,000 ml 1000 / 1000 930 / 930 @ 100 mls/hr I VCONT .Q10H [facility] Rx#:[id number] Output: Output, Urine Am ount 0 / 0 600 / 600 Other: Meal Refused No Breakfast % Eate n 100% Lunch % Eaten 100% Body Mass Index 33.8 General - no acute distress, appears comfortable Cardiovascular - regular rate and rhythm, S1-S2 Lungs - normal respiratory effort, clear to auscultation bilaterally, no wheezing Abdomen - soft, nontender, no rebound regarding Extremities - no edema bilaterally Neuro - awake and alert, no focal deficits Objective Data Current Medications Generic Name Dose Route Start Last Admin Trade Name Freq PRN Reason Stop Dose Admin Hydrocodone Bitart/Acetaminophen 1 tab 05/09/20 10:30 05/09/20 11:10 Hydrocodone Bit/Acetam 5/325 Tablet PO 1 tab Q6H PRN Administration Pain, Severe (Pain Scale 7-10) Alprazolam 0.5 mg 05/08/20 23:38 05/09/20 17:25 Alprazolam 0.5 Mg Tablet PO 0.5 mg TID PRN Administration anxiety Aspirin 81 mg 05/09/20 10:38 05/09/20 11:12 Aspirin Enteric Coated 81 Mg Tablet.Dr PO 81 mg DAILY ALISHA Administration Atorvastatin Calcium 40 mg 05/09/20 21:00 Atorvastatin Calcium 40 Mg Tablet PO BEDTIME ALISHA Doxazosin Mesylate 1 mg 05/09/20 21:00 Doxazosin Mesylate 1 Mg Tablet PO BEDTIME ALISHA Doxycycline Hyclate 100 mg 05/09/20 19:00 Doxycycline Hyclate 100 Mg Tablet PO Q12H ALISHA Enoxaparin Sodium 40 mg 05/08/20 22:52 05/09/20 00:44 Enoxaparin Sodium 40 Mg/0.4 Ml Syringe SUBCUT 40 mg Q24H ALISHA Administration Sodium Chloride 1,000 mls @ 100 mls/hr 05/08/20 22:52 05/09/20 10:03 Ns IVCONT 100 mls/hr .Q10H ALISHA Administration Metoprolol Succinate 25 mg 05/09/20 10:30 05/09/20 11:11 Metoprolol Succinate Er 25 Mg Tab.Er.24h PO 25 mg DAILY ALISHA Administration Protocol Sodium Chloride 2 ml 05/09/20 00:00 05/09/20 10:03 0.9 % Sodium Chloride Flush 3 Ml Syringe IVFLUSH Not Given QSHIFT [facility] Labs CBC & Chem 7: 05/09/20 05:43 05/09/20 05:43 Labs: Laboratory Results - last 24 hr 05/08/20 05/08/20 05/08/20 17:32 17:32 17:32 MCV MCH MCHC RDW Plt Count MPV Immature Gran % (Auto) Neut % (Auto) Lymph % (Auto) [place] % (Auto) Eos % (Auto) Baso % (Auto) Neut # (Auto) Lymph # (Auto) [place] # (Auto) Eos # (Auto) Baso # (Auto) Abs Immat Gran (auto) Absolute Nucleated RBC Nucleated RBC % (auto) PT 13.3 H INR 1.1 APTT 36.2 D-Dimer Anion Gap 13 Estim Creat Clear Calc 122.9 Estimated GFR > 60 Random Glucose 98 Calcium 8.6 Troponin I High Sens 14.7 05/08/20 05/09/20 05/09/20 17:32 05:43 05:43 MCV 95.6 MCH 32.2 MCHC 33.7 RDW 13.2 Plt Count 171 MPV 9.8 Immature Gran % (Auto) 0.1 Neut % (Auto) 60.5 Lymph % (Auto) 28.3 [place] % (Auto) 8.0 Eos % (Auto) 2.7 Baso % (Auto) 0.4 Neut # (Auto) 4.2 Lymph # (Auto) 2.0 [place] # (Auto) 0.6 Eos # (Auto) 0.2 Baso # (Auto) 0.0 Abs Immat Gran (auto) 0.01 Absolute Nucleated RBC 0.000 Nucleated RBC % (auto) 0.0 PT INR APTT D-Dimer 266 Anion Gap 12 Estim Creat Clear Calc 136.1 Estimated GFR > 60 Random Glucose 105 Calcium 8.2 L Troponin I High Sens Progress Note: A&P (1) Syncope: Status: Acute Assessment and Plan: 59 yo M admitted after syncopal episode 1. Syncope / a. fib rvr (now in sinus) cardiology on board -- tikosyn has been disctontinued continue metoprolol monitor on tele 2. HLD statin 3. Anxiety xanax 4. Prostatitis continue his doxy dvt pptx, lovenox full code
[2020-05-09] MEDS: Atorvastatin Calcium 40 MG TABLET PO (21:09)
[2020-05-10] VITALS (9 sets, daily range): BP systolic 126–160; BP diastolic 78–98; PULSE 62–82; RESP 18–20; TEMP 36.3–36.5; O2SAT 95–98
[2020-05-10] MEDS: 0.9 % Sodium Chloride Flush 3 ML SYRINGE 2 ML IVFLUSH ×2 (00:04→09:26)
[2020-05-10] MEDS: 0.9 % Sodium Chloride 1,000 ML 100 ML IVCONT (05:03)
[2020-05-10] MEDS: HYDROcodone Bit/Acetam 5/325 TABLET 1 TAB PO (05:08)
[2020-05-10] MEDS: Metoprolol Succinate ER 25 MG TAB.ER.24H PO (09:26)
[2020-05-10] MEDS: Aspirin Enteric Coated 81 MG TABLET.DR PO (10:18)
--- NOTE | 2020-05-10 10:24 | PM.PNCARD ---
Subjective Subjective Interval history: He has not had any further syncopal episodes in the hospital. In the bathroom, he did feel dizzy when he went to urinate. Physical Exam Vital Signs and I&O: Vital Signs Temp 97.7 F 05/10/20 07:55 Pulse 76 05/10/20 09:26 Resp 20 05/10/20 07:55 BP 126/82 05/10/20 09:26 Pulse Ox 96 05/10/20 07:55 Const General: cooperative, comfortable and no acute distress Orientation/consciousness: patient oriented x3 HENMT Other: Unremarkable Neck Neck: Yes normal visual inspection Chest Chest palpation & inspection: normal inspection of the chest Resp Auscultation: clear to auscultation bilaterally, no crackles and no wheezes Cardio Jugular venous distension: no JVD Palpation: normal PMI Heart sounds: S1 normal heart sound present, S2 normal heart sound present, no gallops, Murmur heart sound present (2/6 RAMANDEEP aortic area) and no rubs GI Palpation (GI): Soft to palpation Back/Spine/Pelvis Other: unremarkable Skin General skin exam: no rashes or lesions noted Neuro General: patient oriented x3 Extrem General: Yes no clubbing, cyanosis or edema Psych Mental Status: mental status grossly normal Progress Note: A&P Assessment and plan (1) Atrial fibrillation with RVR: Status: Acute (2) Syncope: Status: Acute (3) PVC (premature ventricular contraction): Status: Acute Assessment and Plan: Not entirely clear if the syncopal episode is due to the terazosin that he started 2 weeks ago as he has not been feeling well ever since. Atrial fibrillation is also possible but less likely. At this time he can continue the beta-blockers. 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 I discussed this with the patient and he understands and agrees. He will call his laborer carpentry dock for appointments. With regard to the murmur in the aortic area, there is a mention of calcification of aortic leaflets from [facility] echocardiogram from 2019 but there was no stenosis at that time. Fall Risk Details Current Medications: Current Medications Generic Name Dose Route Start Last Admin Trade Name Freq PRN Reason Stop Dose Admin Hydrocodone Bitart/Acetaminophen 1 tab 05/09/20 10:30 05/10/20 05:08 Hydrocodone Bit/Acetam 5/325 Tablet PO 1 tab Q6H PRN Administration Pain, Severe (Pain Scale 7-10) Alprazolam 0.5 mg 05/08/20 23:38 05/09/20 17:25 Alprazolam 0.5 Mg Tablet PO 0.5 mg TID PRN Administration anxiety Aspirin 81 mg 05/09/20 10:38 05/10/20 10:18 Aspirin Enteric Coated 81 Mg Tablet.Dr PO 81 mg DAILY ALISHA Administration Atorvastatin Calcium 40 mg 05/09/20 21:00 05/09/20 21:09 Atorvastatin Calcium 40 Mg Tablet PO 40 mg BEDTIME ALISHA Administration Doxazosin Mesylate 1 mg 05/09/20 21:00 05/09/20 21:13 Doxazosin Mesylate 1 Mg Tablet PO Not Given BEDTIME ALISHA Doxycycline Hyclate 100 mg 05/09/20 19:00 05/10/20 06:30 Doxycycline Hyclate 100 Mg Tablet PO 100 mg Q12H ALISHA Administration Enoxaparin Sodium 40 mg 05/08/20 22:52 05/09/20 21:09 Enoxaparin Sodium 40 Mg/0.4 Ml Syringe SUBCUT 40 mg Q24H ALISHA Administration Sodium Chloride 1,000 mls @ 100 mls/hr 05/08/20 22:52 05/10/20 05:03 Ns IVCONT 100 mls/hr .Q10H ALISHA Administration Metoprolol Succinate 25 mg 05/09/20 10:30 05/10/20 09:26 Metoprolol Succinate Er 25 Mg Tab.Er.24h PO 25 mg DAILY ALISHA Administration Protocol Sodium Chloride 2 ml 05/09/20 00:00 05/10/20 09:26 0.9 % Sodium Chloride Flush 3 Ml Syringe IVFLUSH 2 ml QSHIFT ALISHA Administration Time Spent With Patient Time: Total time spent is greater than 50% in coordination of care (as documented) at patient's floor/unit and/or counseling patient: Time with patient: 15 - 24 minutes
--- NOTE | 2020-05-10 13:21 | P.DS_ITS ---
DS: Providers Provider Date of admission: 05/08/20 22:52 Primary care physician: Duong Wells MD Consults: 05/08/20 22:52 Consult to Physician Routine Consulting Provider: [facility] [place] Cardiovascular Services Reason for consultation: syncope, afib with RVR Has provider been notified: No DS: Diagnosis Discharge Diagnosis (1) Atrial fibrillation with RVR: Status: Acute (2) Syncope: Status: Acute (3) PVC (premature ventricular contraction): Status: Acute DS: Summary Hospital Course Hospital Course: HPI From the admission H&P: 59 y/o male with a significant cardiac hx of afib s/p ablation in the past and PCI 1 month ago who presented from home due to an episode of loss of conciusness . Per history provided by the patient, today while walking with the son, felt his heart was racing and then suddenly felt malaise and loss conciusness for a few minutes. Patient recovered conciusness right after without any sequelae or neurologic deficit. Patient on presentation to the ED was noted to be on afib with RVR (HR of 120's). Was given metoprolol and tikosyn per ED attending. Now HR is under controlled <110's. Patient reports feeling well, denies any chest pain, SOB, nausea or vomiting at present. Reported that 1 month ago had a cardiac cath as was having SOB on ambulation for quite some time but no coronary artery disease was found during the procedure. Medicine was called for admission. Patient was seen and evaluated in the ED, laying down in bed in no acute distress. ROS as above otherwise negative. Physical exam unremarkable. Hospital course no specific cause for the patient's syncopal episode was found. He was monitored on telemetry and did have some PVCs /and SVTs and his medications were discussed by the cardiology team with the patient's outpatient customer support technician at [facility] [place] and decision was made to discontinue his Tikosyn. patient had no further syncopal episodes in the hospital and had negative orthostatics. He was ambulated in the hallway greater than 500 ft with no issues and will be discharged home with close follow-up with his customer support technician. Time Spent with Patient Time attestation: Total time spent providing and/or coordinating discharge services: Physical Exam Vital Signs and I&O and Narrative: Vital Signs and I&O: Vital Signs Temp 97.7 F 10/07/20 07:55 Pulse 77 05/10/20 12:12 Resp 20 05/10/20 12:00 BP 160/98 H 05/10/20 12:12 Pulse Ox 97 05/10/20 12:00 Intake & Output 05/09/20 05/10/20 05/10/20 18:59 06:59 18:59 Intake Total 1360 / 3500.000 2140.000 / 3500.00 0 420 / 420 Output Total 600 / 600 Balance 760 / 2900.000 2140.000 / 2900.00 0 419 / 419 Urine Output (Aver age ml/kg/hr) 0.44 0.44 0.00 Intake: Intake, Oral [place] unt 430 / 670 240 / 670 420 / 420 Intake, IV Amoun t 930 / 2830.000 1900.000 / 2830.00 0 0.9 % Sodium C hloride 1,000 ml 930 / 2830.000 1900.000 / 2830.00 0 @ 100 mls/hr I VCONT .Q10H [facility] Rx#:[id number] Output: Output, Urine Am ount 600 / 600 Other: Meal Refused No Breakfast % Eate n 100% 100% Lunch % Eaten 100% 100% Dinner % Eaten 100% Number of Unmeas ured Voids 3 Urine Bathroom Urine Color Yellow Body Mass Index 33.8 Discharge Plan Discharge Patient Disposition: Home, Self-Care Referrals: Duong Wells MD [Primary Care Provider] - Discharge Medications: Continued atorvastatin 40 mg tablet 40 mg PO DAILY RF: 0 doxycycline hyclate 100 mg capsule 1 cap PO BID RF: 0 oxycodone-acetaminophen 5-325 mg tablet 1 tab PO Q6H RF: 0 alprazolam 0.5 mg tablet 1 tab PO TID PRN (Reason: anxiety) RF: 0 lidocaine 5 % ointment topical TID RF: 0 aspirin 81 mg Tablet 81 mg PO DAILY RF: 0 metoprolol succinate 25 mg Tablet Extended Release 24 Hr 25 mg PO DAILY RF: 0 Discontinued terazosin 1 mg capsule 1 mg PO BEDTIME RF: 0 dofetilide [Tikosyn] 500 mcg Capsule 500 mcg PO Q12H RF: 0 Discharge Orders: Discharge Order (Routine); Ordered 05/10/20 Ordered By: Colton Sewell Diet: advance to your usual diet Activity on Discharge: As tolerated Visit Report Forms: Patient Portal Discharge page Care Plan Goals: Stop taking Tikosyn Health Concerns: A. Fib and syncope Plan of Treatment: Stop Tikosyn F/U with your customer support technician and PCP
--- NOTE | 2020-05-10 13:29 | MHC.CM.PN ---
Patient will be discharged home today no services. will provide transportation.
[2020-05-10 15:15] LABS: Potassium 4.5 mmol/l (3.3-5.1)
== END 2020-05-10 04:00 | disposition home or self-care (01) ==
LOC: HO.ED 22:05 → HO.IMC 05-09 05:58
PROVIDERS: Admitting Provider Internal Medicine; Emergency Provider Emergency Medicine; PCP Internal Medicine; Visit Provider Family Medicine
DX: I48.0 Paroxysmal atrial fibrillation (principal); R55 Syncope and collapse; I49.3 Ventricular premature depolarization; E78.5 Hyperlipidemia, unspecified; F41.9 Anxiety disorder, unspecified; I67.1 Cerebral aneurysm, nonruptured; C61 Malignant neoplasm of prostate; R42 Dizziness and giddiness; F17.200 Nicotine dependence, unspecified, uncomplicated; Z98.61 Coronary angioplasty status; Z98.890 Other specified postprocedural states; Z79.82 Long term (current) use of aspirin; Z79.899 Other long term (current) drug therapy
CPT/HCPCS: 36415; 70450; 71045; 71275; 80048; 83735; 84132; 84484; 85025; 85379; 85610; 85730; 93005; 93010; 94660; 96361; 96372; 96374; 99219; 99284; 99285; J1650

== ENCOUNTER 2020-05-11 16:19 | Inpatient (IN) | payer BC, SELFPAY ==
--- NOTE | 2020-05-11 | XR_ITS ---
EXAMINATION: XR CHEST CLINICAL INFORMATION: Exam weakness. COMPARISON: Chest x-ray 05/08/2020 TECHNIQUE: Frontal portable view of the chest was obtained. 5:06 PM FINDINGS: Lungs are clear. No pulmonary vascular congestion. No pleural effusion or pneumothorax. The heart size is normal. The cardiac and mediastinal contours are normal. Orthopedic anchors present in the right humeral head. There is large generous spurs of the right humeral head at the glenohumeral joint. There is multilevel degenerative spondylosis of the spine. IMPRESSION: No acute abnormality to the chest.
[2020-05-11 16:32] VITALS: BP 155/64; PULSE 75; RESP 18; TEMP 36.9; O2SAT 97; BMI 32.4
[2020-05-11 16:53] VITALS: PULSE 75
--- NOTE | 2020-05-11 17:05 | ED_ITS ---
HPI - General Adult General Chief complaint: Arrhythmia/Palpitations Stated complaint: palpatations Time Seen by Provider: 05/11/20 16:50 Source: patient Mode of arrival: EMS History of Present Illness HPI narrative: 59-year-old male recently discharged from hospital after having arrhythmia and taken off cardiac medication is here for almost passing out. patient states was in the shower and he felt like he wanted to pass out felt very dizzy. He then went outside and continued to feel very dizzy and family member took his pulse and it was 39. Patient denies chest pain nausea vomiting or diaphoresis. Called his primary care doctor and referred to: Want to come into emergency department. MD complaint: dizziness Onset (ago): hour(s) ( Six) Related Data Home Medications Medication Instructions Recorded Confirmed alprazolam 1 tab PO TID PRN 05/08/20 05/08/20 atorvastatin 40 mg PO DAILY 05/08/20 05/09/20 doxycycline hyclate 1 cap PO BID 05/08/20 05/08/20 lidocaine TOPICAL TID 05/08/20 oxycodone-acetaminophen 1 tab PO Q6H 05/08/20 05/08/20 aspirin 81 mg PO DAILY 05/09/20 05/09/20 metoprolol succinate 25 mg PO DAILY 05/09/20 05/09/20 Allergies Allergy/AdvReac Type Severity Reaction Status Date / Time No Known Allergies Allergy Verified 05/08/20 16:43 Review of Systems Constitutional: Comments: Constitutional : No Weight loss, No Fever, No Chil ls, No Night Sweats, No Fatigue, No Malaise ENT/Mouth : No Hearing loss, No Ear Pain, No Nasal Congestion, No Sinus Pain, No Hoarseness, No sore throat, No Rhinorrhea, No Swallowing Difficulty Eyes: No Eye Pain, No Swelling, No Redness, No Foreign Body, No Discharge, No Vision Changes Cardiovascular : No Chest Pain, No SOB, No Dyspnea on Exertion, No Orthopnea, No Edema, No Palpitations Respiratory : No Cough, No Sputum, No Wheezing, No Smoke Exposure, No Dyspnea Gastrointestinal : No Nausea, No Vomiting, No Diarrhea, No Constipation, No abdominal Pain, No Hematochezia, No Melena Genitourinary : no irregular bleeding, No Dysuria, No Urinary Frequency, No Hematuria, No Urinary Incontinence, No Urgency, No Flank Pain, No Urinary Flow Changes, No Hesitancy Musculoskeletal : No joint pain, No Myalgias, No Joint Swelling Skin : No Skin Lesions, No rash Neuro : No Weakness, No Numbness, No Paresthesias, No Loss of Consciousness, positive Dizziness, No Headache Psych : No Anxiety/Panic, No Depression, No SI/HI/AH/VH, No Social Issues, Heme/Lymph: No Bruising, No Bleeding,No Lymphadenopathy Endocrine : No Polyuria, No Polydipsia, No Temperature Intolerance [facility] Past Medical History Medical History A-fib Brain aneurysm Prostate CA PVC (premature ventricular contraction) Surgical History Hx of cardiac cath S/P ablation of atrial flutter Family History Family History (Updated 05/09/20 @ 10:35 by Parmjit Cha MD) Other No significant family history Social History Social History Alcohol intake: never Smoking Status: Light tobacco smoker Tobacco Type: Cigarette Second Hand Smoke Exposure: No Use of substances other than those prescribed or required for medical reasons: No Advance Directives: No Advance Directives Information Provided: No service: No Current occupational status: disabled Physical Exam Vital Signs and I&O and Narrative: Vital Signs and I&O: Vital Signs Temp 98.4 F 05/11/20 16:32 Pulse 75 05/11/20 16:32 Resp 18 05/11/20 16:32 BP 155/64 H 05/11/20 16:32 Pulse Ox 97 05/11/20 16:32 Intake & Output 05/10/20 05/11/20 05/11/20 18:59 06:59 18:59 Weight 111.584 kg Body Mass Index 32.4 vital sign reviewed Const: Other: Appearance: Alert. Oriented X3. No acute distress. Eyes: Pupils equal, round and reactive to light. ENT: Pharynx normal. Neck: Normal inspection. Neck supple. No lymph nodes noted. No crepitus CVS: Normal heart rate and rhythm. Pulses normal. Normal S1 and S2 Respiratory: No respiratory distress. Breath sounds normal. No Wheezing. No rales Abdomen: Soft and nontender. No rigidity. No distention. good BS x4 Skin: Skin warm and dry. Normal skin color. Normal skin turgor. Extremities: No lower extremity edema. No lower extremity edema. No Lacerations. No Rash Neuro: Oriented X 3. No motor deficit. No sensory deficit. Moving all extermities. No slurred speech. Course Consultations Consultation #1: I spoke with Dr. Cha who agrees with cardiac monito ring and admission Time: 17:09 Medical Decision Making MDM Narrative Medical decision making narrative: 59-year-old male chief complaint of near- syncope with reported bradycardia. Will be admitted to [facility]. Medical Records Medical records reviewed: Yes I reviewed the patient's medical records. Medical records narrative: recent admission to the hospital. seen by cardiology. Recent CTA negative for PE and negative CT of the brain Lab Data Lab results reviewed: Yes I reviewed the patient's lab results. Result diagrams: 05/11/20 17:47 05/11/20 17:47 Labs: Lab Results 05/11/20 05/11/20 05/11/20 Range/Units 17:47 17:47 17:47 WBC 7.0 (4.8-10.8) X10*3/uL RBC 4.98 (4.60-5.80) X10*6/uL Hgb 16.0 (14.0-18.0) g/dl Hct 47.0 (42-52) % MCV 94.4 (80-98) fL MCH 32.1 (27.0-33.0) pg MCHC 34.0 (31.0-36.0) g/dl RDW 13.1 (11.0-16.0) % Plt Count 170 (160-400) X10*3/uL MPV 9.6 (9.4-12.4) fL Immature Gran % (Auto) 0.1 (0.0-0.4) % Neut % (Auto) 56.8 (45-73) % Lymph % (Auto) 31.7 (20-40) % [place] % (Auto) 8.3 (2-11) % Eos % (Auto) 2.7 (0-4) % Baso % (Auto) 0.4 (0-2) % Lymph # (Auto) 2.2 (1.2-4.9) X10*3/uL [place] # (Auto) 0.6 (0.1-1.2) X10*3/uL Eos # (Auto) 0.2 (0.0-0.4) X10*3/uL Baso # (Auto) 0.0 (0.0-0.2) X10*3/uL Abs Immat Gran (auto) 0.01 (0.00-0.03) X10*3/uL Absolute Neuts (auto) 4.0 (2.0-8.3) X10*3/uL Absolute Nucleated RBC 0.000 (0.0-0.012) X10*3/uL Nucleated RBC % (auto) 0.0 (0.0-0.2) /100WBC Sodium 139 (135-145) mmol/L Potassium 4.1 (3.3-5.1) mmol/l Chloride 107 (96-108) mmol/L Carbon Dioxide 24 (22-29) mmol/L Anion Gap 12 (12-20) BUN 18 H (9-16) mg/dL Creatinine 0.76 (0.5-1.4) mg/dL Estim Creat Clear Calc 133.6 Estimated GFR > 60 Random Glucose 96 (60-115) mg/dL Calcium 8.8 (8.4-10.2) mg/dL Magnesium 2.1 (1.6-2.6) mg/dL Troponin I High Sens 5.3 D (<3.5-35.0) ng/L ECG Data Attestation: I personally reviewed and interpreted this ECG as follows: Interpretation: rate of 76. Normal axis. Normal ST segments normal p.r. segment. Occasional PVC Discharge Plan Discharge Clinical Impression: Near syncope, Frequent PVCs Patient Disposition: Admitted As Inpatient
--- NOTE | 2020-05-11 17:51 | PC.NURSE ---
multiple iv attempts missed by this rn, leanna rn in to try
[2020-05-11 17:55] LABS: MANUAL DIFF FLAG NO
[2020-05-11] MEDS: 0.9 % Sodium Chloride 1,000 ML 999 ML IVCONT (18:04)
[2020-05-11 18:16] LABS: Basophils Percent Auto 0.4 % (0-2); Eosinophils Absolute Auto 0.2 X10*3/uL (0.0-0.4); Eosinophils Percent Auto 2.7 % (0-4); Imm Gran Abs Auto 0.01 X10*3/uL (0.00-0.03); Imm Gran Pct Auto 0.1 % (0.0-0.4); Lymphocytes Absolute Auto 2.2 X10*3/uL (1.2-4.9); Lymphocytes Percent Auto 31.7 % (20-40); Mean Corpuscular Hemoglobin 32.1 pg (27.0-33.0); Mean Corpuscular Volume 94.4 fL (80-98); Mean Platelet Volume 9.6 fL (9.4-12.4); Monocytes Absolute Auto 0.6 X10*3/uL (0.1-1.2); Monocytes Percent Auto 8.3 % (2-11); Neutrophils Percent Auto 56.8 % (45-73); Platelet Count 170 X10*3/uL (160-400); Red Blood Count 4.98 X10*6/uL (4.60-5.80); Red Cell Distribution Width 13.1 % (11.0-16.0)
[2020-05-11 18:20] LABS: Anion Gap 12 (12-20); Blood Urea Nitrogen 18 mg/dL (9-16); Calcium 8.8 mg/dL (8.4-10.2); Carbon Dioxide 24 mmol/L (22-29); Chloride 107 mmol/L (96-108); Creatinine Clr Calc Pharmacy 133.6; Estimated Glomerular Filt Rate > 60; Glucose Random 96 mg/dL (60-115); Magnesium 2.1 mg/dL (1.6-2.6); Potassium 4.1 mmol/l (3.3-5.1); Sodium 139 mmol/L (135-145)
[2020-05-11 18:23] LABS: Troponin-I High Sensitivity 5.3 ng/L (<3.5-35.0)
--- NOTE | 2020-05-11 20:22 | P.HPIM_ITS ---
History of Present Illness Date of Service: 05/11/20 Chief Complaint: pre syncope 59 y/o male with known hx of Afib s/p ablation in the past and PCI a month ago who presented from home due to an episode of pre syncope. Patient was recently admitted in our service due to afib with RVR and an episode of syncope. Patient was evaluated by cardiology and decision was reached to stop anti-arrythmic medication (tikosyn). Today patient presented again after less than 24 hrs of being discharged from our service due to one episode of dizziness and feeling like almost passing out while in the bathroom. Patient had vitals checked at home after this episode and identified to had a HR of 39 for what was brought to the ER for further evaluation .While in the ED patient has been on sinus rythm with rate between 55-75 bpm, BP now of 155/64 mmHg. EKG shows multiple episodes of PVC's. Mag, K and Ca levels WNL. Case was discussed with Outpatient Coder business administration instructor who agreed for patient to be admitted under medicine for evaluation. Patient seen and evaluated at the bedside, laying down in bed in no acute distress. ROS as above otherwise negative. On physical exam has an irregular rythm, rate controlled. EKG strip showing occasional episodes of PVC's. Patient denies any symptoms at present. HR of 77. Patient reported that not only stopped taking recently tikosyn as per discharge instructions but also self stopped terazosyn which was taking for urinary retention. PMHX: Syncope, Afib s/p Ablation and PCI 1 month ago, Urinary retention, anxiety PSx: as above Toxic habits: No hx of alcohol abuse, smoking or IVDA Review of Systems Constitutional: Constitutional: Reports malaise ENT: Reports dizziness Cardiovascular: Cardiovascular: Reports irregular heart rhythm Neurologic: Reports dizziness and Reports other (pre syncope) [facility] Medical History A-fib Brain aneurysm Prostate CA PVC (premature ventricular contraction) Functional capacity: independent ambulation Family History Other No significant family history Family history: reviewed and not pertinent Surgical History Hx of cardiac cath S/P ablation of atrial flutter Social History Alcohol intake: never Smoking Status: Light tobacco smoker Tobacco Type: Cigarette Second Hand Smoke Exposure: No Use of substances other than those prescribed or required for medical reasons: No Advance Directives: No Advance Directives Information Provided: No service: No Current occupational status: disabled Meds Allergies Allergy/AdvReac Type Severity Reaction Status Date / Time No Known Allergies Allergy Verified 05/08/20 16:43 Home Medications Medication Instructions Recorded Confirmed Type alprazolam 1 tab PO TID PRN 05/08/20 05/08/20 History atorvastatin 40 mg PO DAILY 05/08/20 05/09/20 History doxycycline hyclate 1 cap PO BID 05/08/20 05/08/20 History lidocaine TOPICAL TID 05/08/20 History oxycodone-acetaminophen 1 tab PO Q6H 05/08/20 05/08/20 History aspirin 81 mg PO DAILY 05/09/20 05/09/20 History metoprolol succinate 25 mg PO DAILY 05/09/20 05/09/20 History Physical Exam Vital Signs and Narrative: Vital Signs: Last Vital Signs Temp 98.4 F 05/11/20 16:32 Pulse 75 05/11/20 16:32 Resp 18 05/11/20 16:32 BP 155/64 H 05/11/20 16:32 Pulse Ox 97 05/11/20 16:32 Body Mass Index 32.4 Results Labs Labs: Laboratory Tests 05/11/20 05/11/20 05/11/20 17:47 17:47 17:47 WBC 7.0 RBC 4.98 Hgb 16.0 Hct 47.0 MCV 94.4 MCH 32.1 MCHC 34.0 RDW 13.1 Plt Count 170 MPV 9.6 Immature Gran % (Auto) 0.1 Neut % (Auto) 56.8 Lymph % (Auto) 31.7 [place] % (Auto) 8.3 Eos % (Auto) 2.7 Baso % (Auto) 0.4 Lymph # (Auto) 2.2 [place] # (Auto) 0.6 Eos # (Auto) 0.2 Baso # (Auto) 0.0 Abs Immat Gran (auto) 0.01 Absolute Neuts (auto) 4.0 Absolute Nucleated RBC 0.000 Nucleated RBC % (auto) 0.0 Sodium 139 Potassium 4.1 Chloride 107 Carbon Dioxide 24 Anion Gap 12 BUN 18 H Creatinine 0.76 Estim Creat Clear Calc 133.6 Estimated GFR > 60 Random Glucose 96 Calcium 8.8 Magnesium 2.1 Troponin I High Sens 5.3 D Assessment and Plan (1) Near syncope: Status: Acute One episode of bradycardia noted at home of 39. Now rate WNL with occasional episodes of PVC's early head start teacher Observation Hold Metoprolol for now Cardio evaluation in the am for further discussion of possible need of EP evaluation at present (2) Atrial fibrillation: Status: Acute Hold metoprolol as of now as stated above continue with aspirin home dose (3) Frequent PVCs: Status: Acute Noted on EKG now. Electrolytes within normal limits (4) Hypertension: Status: Acute continue with lisinopril home dose (5) Anxiety: Status: Acute Hold alprazolam as of now given preentation
[2020-05-11 22:00] VITALS: BP 148/91; PULSE 46; RESP 18; TEMP 35.6; O2SAT 96
[2020-05-11 22:18] VITALS: BP 128/70; PULSE 60; RESP 18; TEMP 36.3; O2SAT 97
[2020-05-11 22:52] VITALS: BMI 72.7
[2020-05-11] MEDS: Enoxaparin Sodium 40 MG/0.4 ML SYRINGE SUBCUT (23:08)
[2020-05-11] MEDS: 0.9 % Sodium Chloride Flush 3 ML SYRINGE IVFLUSH (23:09)
[2020-05-12] VITALS (8 sets, daily range): BP systolic 105–149; BP diastolic 48–69; PULSE 38–87; RESP 16–20; TEMP 36–36.7; O2SAT 95–96
[2020-05-12 06:55] LABS: Hematocrit 49.1 % (42-52); Mean Corpuscular HGB Conc 32.6 g/dl (31.0-36.0); Mean Corpuscular Hemoglobin 31.4 pg (27.0-33.0); Mean Corpuscular Volume 96.3 fL (80-98); Mean Platelet Volume 9.8 fL (9.4-12.4); Platelet Count 168 X10*3/uL (160-400); Red Cell Distribution Width 13.1 % (11.0-16.0); White Blood Count 5.9 X10*3/uL (4.8-10.8)
[2020-05-12 07:24] LABS: Anion Gap 12 (12-20); Blood Urea Nitrogen 16 mg/dL (9-16); Calcium 8.8 mg/dL (8.4-10.2); Carbon Dioxide 25 mmol/L (22-29); Chloride 105 mmol/L (96-108); Creatinine Clr Calc Pharmacy 200.3; Estimated Glomerular Filt Rate > 60; Glucose Random 114 mg/dL (60-115); Magnesium 2.1 mg/dL (1.6-2.6); Potassium 4.2 mmol/l (3.3-5.1); Sodium 138 mmol/L (135-145)
[2020-05-12 07:46] LABS: Thyroid Stimulating Hormone 2.43 mIU/mL (0.32-4.0)
[2020-05-12] MEDS: Aspirin Enteric Coated 81 MG TABLET.DR PO (08:45)
[2020-05-12] MEDS: 0.9 % Sodium Chloride Flush 3 ML SYRINGE IVFLUSH (08:46)
[2020-05-12] MEDS: Metoprolol Succinate ER 25 MG TAB.ER.24H PO (09:50)
--- NOTE | 2020-05-12 10:07 | P.CONCA_ITS ---
History of Present Illness History of Present Illness Date of Consult: May 12, 2020 Requesting physician: Colton Sewell Chief complaint: palpatations Narrative: This is a cardiology consultation regarding bradycardia. He was just seen in the hospital few days ago. He was taking Tikosyn for a long time due to history of atrial fibrillation. He also has a history of atrial flutter ablation. he was recently admitted for complaints of syncopal episode. He was having lot of PVCs on telemetry as well as a run of NSVT. After discussion with his own land management forester from [facility], we stopped his Tikosyn. He was discharged home only on beta-blockers. In the interim, he did not have any further specific syncopal type episodes but just did not feel good. Of note, he has just felt this way for a long time and nothing acutely happened yesterday. However, incidentally, his pulse got checked and that apparently revealed to be 39/Min a lthough I believe it could have been just a false reading due to frequent PVCs. Then they called his own PCP who referred him to the ER. Otherwise patient does not have any anginal-type chest pains or shortness of breath or palpitations or any other cardiac complaints at this time. Overall, he just does not feel good but he has felt like that for almost is many months now. Additionally, he also started terazosin for prostate issues couple of weeks ago which made him feel even worse. That was also stopped after the recent hospitalization. Review of Systems Review of Systems: cardiac positive for intermittent dizziness but no syncope; no anginal-type chest pain; not short of breath; no leg swelling; no palpitations; remainder of the 10 system review is negative. [facility] Past Medical History Medical History A-fib Brain aneurysm Prostate CA PVC (premature ventricular contraction) Functional capacity: independent ambulation Family History Family History Other No significant family history Family history: reviewed and not pertinent Surgical History Surgical History Hx of cardiac cath S/P ablation of atrial flutter Social History Social History Household Members: Spouse Housing: House Do you presently have visiting nurse or other home services: No Alcohol intake: never Smoking Status: Former smoker Tobacco Type: Cigarette Second Hand Smoke Exposure: No Use of substances other than those prescribed or required for medical reasons: No Have you been hit, kicked, punched, or otherwise hurt by someone within the past year? If so, by whom?: No Do you feel safe in your current relationship?: No Is there a partner from a previous relationship who is making you feel unsafe now?: No Are you made to feel afraid or neglected: No Advance Directives: No Advance Directives Information Provided: No Do you have thoughts of harming others: None Do you have a plan to hurt others: No Plan Recently lost weight without trying: No service: No Current occupational status: disabled Interior Define Allergies Allergy/AdvReac Type Severity Reaction Status Date / Time No Known Allergies Allergy Verified 05/08/20 16:43 Home Medications Medication Instructions Recorded Confirmed Type alprazolam 0.5 mg PO TID PRN 05/08/20 05/11/20 History atorvastatin 40 mg PO DAILY 05/08/20 05/11/20 History doxycycline hyclate 100 mg PO BID 05/08/20 05/11/20 History lidocaine 1 applic TOPICAL TID 05/08/20 05/11/20 History oxycodone-acetaminophen 1 tab PO Q6H 05/08/20 05/11/20 History metoprolol succinate 25 mg PO DAILY 05/09/20 05/11/20 History aspirin 81 mg PO DAILY 05/11/20 05/11/20 History Physical Exam Vital Signs and I&O and Narrative: Vital Signs and I&O: Temp Pulse Resp BP Pulse Ox 98.1 F 87 18 149/69 H 96 05/12/20 07:28 05/12/20 09:50 05/12/20 07:28 05/12/20 09:50 05/12/20 07:28 Const General: cooperative, comfortable and no acute distress Orientation/consciousness: patient oriented x3 HENMT Other: Unremarkable Neck Neck: normal visual inspection Chest Chest palpation & inspection: normal inspection of the chest Resp Auscultation: clear to auscultation bilaterally, no crackles and no wheezes Cardio Jugular venous distension: no JVD Palpation: normal PMI Heart sounds: S1 normal heart sound present, S2 normal heart sound present, no gallops, Murmur heart sound present (2/6 RAMANDEEP aortic area) and no rubs GI Palpation (GI): Soft to palpation Back/Spine/Pelvis Other: unremarkable Skin General skin exam: no rashes or lesions noted Neuro General: patient oriented x3 Extrem General: Yes no clubbing, cyanosis or edema Psych Mental Status: mental status grossly normal Results Labs and Meds Result diagrams: 05/12/20 05:46 05/12/20 05:46 Lab results: Laboratory Results - last 24 hr 05/11/20 05/11/20 05/11/20 17:47 17:47 17:47 WBC 7.0 RBC 4.98 Hgb 16.0 Hct 47.0 MCV 94.4 MCH 32.1 MCHC 34.0 RDW 13.1 Plt Count 170 MPV 9.6 Immature Gran % (Auto) 0.1 Neut % (Auto) 56.8 Lymph % (Auto) 31.7 [place] % (Auto) 8.3 Eos % (Auto) 2.7 Baso % (Auto) 0.4 Lymph # (Auto) 2.2 [place] # (Auto) 0.6 Eos # (Auto) 0.2 Baso # (Auto) 0.0 Abs Immat Gran (auto) 0.01 Absolute Neuts (auto) 4.0 Absolute Nucleated RBC 0.000 Nucleated RBC % (auto) 0.0 Sodium 139 Potassium 4.1 Chloride 107 Carbon Dioxide 24 Anion Gap 12 BUN 18 H Creatinine 0.76 Estim Creat Clear Calc 133.6 Estimated GFR > 60 Random Glucose 96 Calcium 8.8 Magnesium 2.1 Troponin I High Sens 5.3 D TSH 05/12/20 05/12/20 05:46 05:46 WBC 5.9 RBC 5.10 Hgb 16.0 Hct 49.1 MCV 96.3 MCH 31.4 MCHC 32.6 RDW 13.1 Plt Count 168 MPV 9.8 Immature Gran % (Auto) Neut % (Auto) Lymph % (Auto) [place] % (Auto) Eos % (Auto) Baso % (Auto) Lymph # (Auto) [place] # (Auto) Eos # (Auto) Baso # (Auto) Abs Immat Gran (auto) Absolute Neuts (auto) Absolute Nucleated RBC 0.000 Nucleated RBC % (auto) 0.0 Sodium 138 Potassium 4.2 Chloride 105 Carbon Dioxide 25 Anion Gap 12 BUN 16 Creatinine 0.81 Estim Creat Clear Calc 200.3 Estimated GFR > 60 Random Glucose 114 Calcium 8.8 Magnesium 2.1 Troponin I High Sens TSH 2.43 EKG Interpretation EKG Comments: EKG was reviewed by me. Underlying rhythm is sinus at 76/Min; there were frequent premature ventricular contractions that appear unifocal. QTc 441ms. PAC also noted. Telemetry was reviewed. Underlying sinus with PVCs. No evidence of any NSVT. Assessment and Plan (1) PVC (premature ventricular contraction): Status: Acute (2) PAF (paroxysmal atrial fibrillation): Status: Acute (3) Dizziness: Status: Acute Based on EKG as well as telemetry there is no evidence of significant bradycardia as initially thought. The heart rate of 39/Min obtain at home could have been an error due to the frequent PVCs. Otherwise even the EMS EKG did not show any significant bradycardia and heart rate in that was in the 60s to 70s. There is also no evidence of any atrial fibrillation anywhere including the EMS EKG. Overall, I do not think he has anything concerning at this time. He has had longstanding PVCs according to the discussion I had with his own land management forester from [facility]. Patient himself is called his cardiology group and the nurse apparently asked him to increase the dose of beta-lazaro to twice a day as the Tikosyn was stopped recently. This seems appropriate to me. Otherwise no new cardiac recommendations and he can be discharged home. He is due for a outpatient monitor that is set up for Friday through his own land management forester.
--- NOTE | 2020-05-12 10:19 | MHC.CM.PN ---
Male 59 DX Palpatations Lives with . DC [facility] 05/10/20. Pt returns with Palpatations. Medication changes made. Requested copy of HCP. DP home no services family transport.
--- NOTE | 2020-05-12 12:28 | P.DS_ITS ---
DS: Providers Provider Date of admission: 05/11/20 20:47 Primary care physician: Unknown Physician Consults: 05/11/20 22:24 Consult to Physician Routine Consulting Provider: [facility] Cardi[facility] Reason for consultation: pre syncope. Afib with slow ventricular response Has provider been notified: No DS: Diagnosis Discharge Diagnosis (1) PVC (premature ventricular contraction): Status: Acute (2) PAF (paroxysmal atrial fibrillation): Status: Acute DS: Summary Hospital Course Hospital Course: Patient was admitted to telemetry and cardiac consultation was sought. based on the patient's tele monitor, no significant bradycardia was noted nor was any AFib noted. He did have frequent PVCs -- Which reportedly is longstanding. The palpated pulse of 39 at home may have been a false reading due to frequent PVCs. Patient's beta-lazaro was re-initiated and in fact as advised by his own accountant manager has been increased to 25 mg twice a day. He is going to have an e vent monitor bladder by his own accountant manager to start on Friday. Time Spent with Patient Time attestation: Total time spent providing and/or coordinating discharge services: Physical Exam Vital Signs and I&O and Narrative: Vital Signs and I&O: Vital Signs Temp 98 F 05/12/20 11:55 Pulse 67 05/12/20 11:55 Resp 20 05/12/20 11:55 BP 112/65 05/12/20 11:55 Pulse Ox 95 05/12/20 11:55 Intake & Output 05/11/20 05/12/20 05/12/20 18:59 06:59 18:59 Intake Total 1120 / 1120 200 / 200 Balance 1120 / 1120 200 / 200 Weight 111.584 kg 250 kg Intake: Intake, Oral Mateus unt 120 / 120 200 / 200 Intake, IV Amoun t 1000 / 1000 0.9 % Sodium C hloride 1,000 ml 1000 / 1000 @ 999 mls/hr I VCONT .Q1H1M [facility] Rx#:[id number] Other: Breakfast % Eate n 75% Number of Unmeas ured Voids 1 Urine Bathroom Urine Color Yellow Body Mass Index 72.7 DS: Data Data Completed and Pending Labs on day of discharge: Labs from last 24 hours 05/12/20 05/12/20 05/11/20 05:46 05:46 17:47 WBC 5.9 RBC 5.10 Hgb 16.0 Hct 49.1 MCV 96.3 MCH 31.4 MCHC 32.6 RDW 13.1 Plt Count 168 MPV 9.8 Immature Gran % (Auto) Neut % (Auto) Lymph % (Auto) [place] % (Auto) Eos % (Auto) Baso % (Auto) Lymph # (Auto) [place] # (Auto) Eos # (Auto) Baso # (Auto) Abs Immat Gran (auto) Absolute Neuts (auto) Absolute Nucleated RBC 0.000 Nucleated RBC % (auto) 0.0 Sodium 138 139 Potassium 4.2 4.1 Chloride 105 107 Carbon Dioxide 25 24 Anion Gap 12 12 BUN 16 18 H Creatinine 0.81 0.76 Estim Creat Clear Calc 200.3 133.6 Estimated GFR > 60 > 60 Random Glucose 114 96 Calcium 8.8 8.8 Magnesium 2.1 2.1 Troponin I High Sens TSH 2.43 05/11/20 05/11/20 17:47 17:47 WBC 7.0 RBC 4.98 Hgb 16.0 Hct 47.0 MCV 94.4 MCH 32.1 MCHC 34.0 RDW 13.1 Plt Count 170 MPV 9.6 Immature Gran % (Auto) 0.1 Neut % (Auto) 56.8 Lymph % (Auto) 31.7 [place] % (Auto) 8.3 Eos % (Auto) 2.7 Baso % (Auto) 0.4 Lymph # (Auto) 2.2 [place] # (Auto) 0.6 Eos # (Auto) 0.2 Baso # (Auto) 0.0 Abs Immat Gran (auto) 0.01 Absolute Neuts (auto) 4.0 Absolute Nucleated RBC 0.000 Nucleated RBC % (auto) 0.0 Sodium Potassium Chloride Carbon Dioxide Anion Gap BUN Creatinine Estim Creat Clear Calc Estimated GFR Random Glucose Calcium Magnesium Troponin I High Sens 5.3 D TSH Discharge Plan Discharge Patient Disposition: Home, Self-Care Referrals: Physician,Unknown [Primary Care Provider] - Discharge Medications: New aspirin 81 mg Tablet,Delayed Release (Dr/Ec) 81 mg PO DAILY Qty: 30 RF: 0 Continued atorvastatin 40 mg tablet 40 mg PO DAILY RF: 0 doxycycline hyclate 100 mg capsule 100 mg PO BID RF: 0 oxycodone-acetaminophen 5-325 mg tablet 1 tab PO Q6H RF: 0 alprazolam 0.5 mg tablet 0.5 mg PO TID PRN (Reason: anxiety) RF: 0 lidocaine 5 % ointment 1 applic topical TID RF: 0 aspirin 81 mg Tablet,Delayed Release (Dr/Ec) 81 mg PO DAILY RF: 0 Changed metoprolol succinate 25 mg Tablet Extended Release 24 Hr 25 mg PO BID Qty: 0 RF: 0 Discharge Orders: Discharge Order (Routine); Ordered 05/12/20 Ordered By: Colton Sewell Diet: advance to your usual diet Activity on Discharge: As tolerated Visit Report Forms: Patient Portal Discharge page Care Plan Goals: To stay out of the hospital and continue feeling better Health Concerns: Cardiac Issues Plan of Treatment: Increase metoprolol to 25mg twice daily Start cardiac monitoring
== END 2020-05-12 13:10 | disposition home or self-care (01) | DRG 201 ==
LOC: HO.ED 18:35 → HO.IMC 21:17
PROVIDERS: Internal Medicine; Admitting Provider Physician Assistant Medical; Emergency Provider Emergency Medicine; Visit Provider Family Medicine
DX: I48.0 Paroxysmal atrial fibrillation (principal); F41.9 Anxiety disorder, unspecified; I49.3 Ventricular premature depolarization; F17.210 Nicotine dependence, cigarettes, uncomplicated; Z71.6 Tobacco abuse counseling; Z85.46 Personal history of malignant neoplasm of prostate; Z79.82 Long term (current) use of aspirin; Z79.891 Long term (current) use of opiate analgesic; Z79.899 Other long term (current) drug therapy
CPT/HCPCS: 36415; 70450; 71045; 71275; 80048; 83735; 84132; 84443; 84484; 85025; 85027; 85379; 85610; 85730; 93005; 93010; 94660; 96360; 96361; 96372; 96374; 99219; 99284; 99285; J1650